=== PATIENT | male | born 1970 | race Caucasian/White ===

== ENCOUNTER 2017-05-05 18:32 | Emergency (ER) | payer SELFPAY ==
[~2017-05-05] VITALS: Ht 180.3 cm; Wt 119.1 kg
[~2017-05-05 18:32] MED LIST: CLIN150C PO; NAPR1TAB9 PO
[2017-05-05 18:34] VITALS: TEMP 36.9; Ht 180.3 cm; Wt 119.1 kg
--- NOTE | 2017-05-05 19:01 | DIAGNOSTIC IMAGING REPORT ---
L FOREARM 2 VIEWS ROUTINE HISTORY: 46 years-old Male Left forearm injury acute left forearm pain status post fall COMPARISON: None available TECHNIQUE: 2 views of the left forearm FINDINGS: Mild soft tissue swelling of the mid forearm dorsally without opaque foreign body. Mild marginal spurring about the elbow. No acute fracture or dislocation. IMPRESSION: Mild soft tissue swelling without acute fracture or opaque foreign body. The above report was generated using voice recognition software. It may contain grammatical, syntax or spelling errors. Electronically signed by: Marques Covarrubias M.D. 05/05/2017 7:00 PM Dictated Date/Time: 05/05/2017 6:59 PM
--- NOTE | 2017-05-05 19:10 | EMERGENCY ROOM VISIT NOTE ---
ED Visit Note First contact with patient: 18:39 CHIEF COMPLAINT: Left forearm injury 10 hours ago HISTORY OF PRESENT ILLNESS: Patient is a left-hand dominant 47-year-old white male who presents the emergency department for evaluation of left forearm pain after an injury about 10 hours ago. 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 He was pinched against the window seal for only about 30 seconds before the window was moved. 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 He did not take any time to rest or ice and did not take any medication for his pain. He notes discomfort in the mid forearm where he was struck, but rates his pain is 0/10. He notes discomfort primarily with rotation of his forearm. There is no numbness, tingling or weakness into the hand. There is no pain at the wrist or the elbow. REVIEW OF SYSTEMS: Review of systems as per HPI. All other systems reviewed were negative. 10 systems reviewed. PMH: Electronic medical records are reviewed and summarized as above/below. See Problem List. SOCIAL HISTORY: Patient lives at home with his spouse. Employed. Non-smoker . PHYSICAL EXAM: Vital Signs: Reviewed Nurse's notes. CONSTITUTIONAL: Patient is a pleasant well-appearing 46-year-old white male who is awake and alert and in no acute distress. MUSCULOSKELETAL: Examination of the left forearm note mild soft tissue swelling. There is a superficial abrasion noted on the ulnar aspect of the midforearm. He is tender in the mid forearm, without obvious deformity. No fracture crepitus. The elbow and wrist are nontender. There is no joint effusion palpable. Muscle bellies are soft. Wrist and elbow range of motion are full. He only has some slight discomfort primarily with pronation, supination is full. The skin is otherwise intact. Sensation light touch is intact over the forearm. The fingers are warm and well perfused with good capillary refill and easily palpable radial and ulnar pulses. EMERGENCY DEPARTMENT COURSE: X-Rays of the left forearm were obtained and negative for acute fracture. Conservative care measures were discussed. Patient declined any medication for discomfort or an Terry wrap. Differential diagnoses entertained included contusion, hematoma, fracture, among others. His exam is not at all consistent with a compartment syndrome. The patient was discharged home in stable condition. Medication reconciliation: I attest that I have personally reviewed the patient' s current medication list. Blood pressure screening: Patient was found to have a slightly elevated blood pressure due to circumstances. I do not believe that the patient requires hypertension monitoring. L FOREARM 2 VIEWS ROUTINE HISTORY: 46 years-old Male Left forearm injury acute left forearm pain status post fall COMPARISON: None available TECHNIQUE: 2 views of the left forearm FINDINGS: Mild soft tissue swelling of the mid forearm dorsally without opaque foreign body. Mild marginal spurring about the elbow. No acute fracture or dislocation. IMPRESSION: Mild soft tissue swelling without acute fracture or opaque foreign body. Problem List Medical Problems: (1) Cellulitis Status: Resolved (2) Dental abscess Status: Resolved (3) Hypertension Nos Status: Chronic (4) Personal History Of Urinary Calculi Status: Resolved (5) Tick bite of abdomen Status: Resolved (6) Tick bite of abdomen Status: Resolved Current/Historical Medications No Active Prescriptions or Reported Meds Allergies Coded Allergies: Peanut (Unverified Allergy, Severe, 10/16/15) Milk (Unverified Allergy, Mild, hive, 10/16/15) Penicillins (Unverified Allergy, Mild, 10/16/15) Uncoded Allergies: CILLANS (Allergy, Intermediate, HIVES, 05/05/17) Vital Signs Date Time Temp Pulse Resp B/P (MAP) Pulse Ox O2 Delivery O2 Flow Rate FiO2 05/05/17 19:17 84 16 154/105 95 Room Air 05/05/17 18:34 36.9 96 17 168/106 95 Room Air Departure Information Impression Primary Impression: Contusion of left forearm Prescriptions No Active Prescriptions or Reported Meds Referrals Patsy Lee M.D. (MEDICAL) (PCP) Patient Instructions My [facility] Additional Instructions Ibuprofen(Motrin, Advil) may be used for fever or pain. Use 600mg every six hours as needed. Take with food. Avoid using more than 2400mg in a 24 hour period. Do not use 2400mg per day for more than three consecutive days without physician direction. Prolonged inappropriate use can lead to stomach upset or ulcers. This medication can be taken if you need to drive, work, or perform activities which may be dangerous when taking narcotic pain medication. (AND/OR) Acetaminophen(Tylenol) may be used for fever or pain. Use 1000mg every six hours as needed. Avoid using more than 3000mg in a 24 hour period. This medication can be taken if you need to drive, work, or perform activities which may be dangerous when taking narcotic pain medication. Ice compresses for 20 minutes at a time four times daily for 2-3 days. Rest and elevate your injury. Continue current medications. Return to the ER immediately for any numbness, tingling, severe pain, extreme swelling in the extremity or as needed. Followup with your family doctor or orthopedic surgery if no improvement in 5-7 days. Problem Qualifiers Primary Impression: Contusion of left forearm Encounter type: initial encounter Qualified Codes: S50.12XA - Contusion of left forearm, initial encounter
[2017-05-05 19:17] VITALS: BP 154/105; PULSE 84; O2SAT 95
== END 2017-05-05 19:18 | disposition home or self-care (01) ==
LOC: C.EDB 18:33 → C.EDD 19:18
DX: S50.12XA Contusion of left forearm, initial encounter (principal); W20.8XXA Other cause of strike by thrown, projected or falling object, initial encounter; Y99.0 Civilian activity done for income or pay; S50.812A Abrasion of left forearm, initial encounter; I10 Essential (primary) hypertension; Z91.010 Allergy to peanuts; Z91.011 Allergy to milk products; Z88.0 Allergy status to penicillin